=== PATIENT | female | born 1945 | race Caucasian/White ===

== ENCOUNTER 2017-08-26 06:00 | Day surgery (SDC) | payer OTHER ==
[~2017-08-26] VITALS: Ht 162.6 cm; Wt 83.5 kg
--- NOTE | ~2017-08-26 | O ---
[facility] [place] [address] [place] [address] OPERATIVE REPORT Name: PRABHAKAR CURIEL Room #: 150-8 [facility]..#: [id number] Admission: 08/26/17 Attend Phys: Wiley Kimbrough MD Discharge: Date of : 47 Report #: [id number] THIS REPORT FOR: //name// CC: Dr. Karla Kimbrough DATE OF SERVICE: 08/26/2017 DIRECTOR BUSINESS DEVELOPMENT: None. PREOPERATIVE DIAGNOSIS: Bilateral upper lid ptosis with superior visual field defects both eyes. POSTOPERATIVE DIAGNOSIS: Bilateral upper lid ptosis with superior visual field defects both eyes. OPERATION PERFORMED: Bilateral upper lid functional ptosis repair. DIRECTOR BUSINESS DEVELOPMENT: None. ANESTHESIA: Local with IV sedation. COMPLICATIONS: None. INDICATIONS FOR PROCEDURE: This patient has bilateral upper lid ptosis with superior visual field loss both eyes. Visual field testing demonstrates dense superior visual defects. Retesting with the upper lid elevated shows an improvement in visual field loss of over 30% and in excess of 12 degrees. The current procedure is being undertaken in order to improve the patient's visual function. Informed consent was obtained to include but not limited to the risk of loss of vision, bleeding, infection, scarring, failure to improve the problem and need for further surgery, such as adjustment of lid height. DESCRIPTION OF PROCEDURE: The patient was taken to the operating room, where 2% Xylocaine with epinephrine mixed with equal parts of 0.75% Marcaine with Wydase was administered transcutaneously to each upper lid. The patient was then prepped and draped in the usual sterile fashion. An upper lid crease incision was then made bilaterally and the dissection was carried down until the orbital septum was identified. The orbital septum was then cleared and the preaponeurotic fat identified. The levator aponeurosis was then disinserted from the anterior surface of the tarsal plate and dissected [address] [address] OPERATIVE REPORT Name: PRABHAKAR CURIEL Room #: 150-8 [facility]#: [id number] Admission: 08/26/17 Attend Phys: Wiley Kimbrough MD Discharge: Date of : 47 Report #: [id number] free in the avascular Cao's muscle plane. The aponeurosis was then advanced and reattached to the anterior surface of the tarsal plate with interrupted mattress 6-0 Novafil sutures on each side, adjusting for height and contour. The redundant aponeurosis was then amputated. The incision was then closed with multiple interrupted 6-0 chromic sutures that were used to recreate an upper lid crease. The skin was closed with a running 6-0 plain gut suture. The wound was then cleaned and dressed with ophthalmic antibiotic ointment followed by a Telfa pad. The patient was transported to the recovery area, having tolerated the procedure well with no anesthesia or operative complications being noted. By: [id number] MD sarah Mesa
[~2017-08-26 06:00] MED LIST: CALCIUM 600 +1 EAC1 PO; CELEXA40 MG PO; DULERA 100 MCG/13 GM INH; IRON325 PO; MAGNESIUM400 M1 PO; MULTI VITAMIN1 EACH PO; OMEPRAZOLE40 MG PO; SINGULAIR 10 MG10 M1 PO; TOPROL XL25 MG PO; VENTOLIN HFA 1818 GM INH; VITAMIN D32000 UNIT PO; VITAMIN E400 UNIT PO; ZINC50 M1 PO; ZYRTEC10 M4 PO
[2017-08-26 12:45] VITALS: BP 138/90
== END 2017-08-26 15:26 | disposition home or self-care (01) ==
LOC: TBA 06:00 → OR 06:00
DX: H02.403 Unspecified ptosis of bilateral eyelids (principal); I10 Essential (primary) hypertension; J45.909 Unspecified asthma, uncomplicated; K21.9 Gastro-esophageal reflux disease without esophagitis; M19.90 Unspecified osteoarthritis, unspecified site; F41.9 Anxiety disorder, unspecified; Z79.899 Other long term (current) drug therapy; Z98.890 Other specified postprocedural states; Z96.612 Presence of left artificial shoulder joint; Z96.611 Presence of right artificial shoulder joint; Z87.891 Personal history of nicotine dependence; Z87.19 Personal history of other diseases of the digestive system; Z96.653 Presence of artificial knee joint, bilateral; Z85.41 Personal history of malignant neoplasm of cervix uteri; Z88.8 Allergy status to other drugs, medicaments and biological substances
CPT/HCPCS: 50010; 50101; 50386; 50398; 51636; 56528; 56531; 62110; 62850; 70005